=== PATIENT | male | born 1990 | race Caucasian/White ===

== ENCOUNTER 2018-02-10 19:53 | Emergency (ER) | payer BC ==
[~2018-02-10] VITALS: Ht 172.7 cm; Wt 60.0 kg
[2018-02-10 20:05] VITALS: BP 115/75
[2018-02-10 21:51] LABS: BASOPHILS # (AUTO) 0.02 x10^3/uL (0-0.1); BASOPHILS % (AUTO) 0 % (0-1); EOSINOPHILS % (AUTO) 1 % (1-7); LYMPHOCYTES % (AUTO) 20 % (22-44); MD NO; MEAN CORPUSCULAR HEMOGLOBIN 29.7 pg (27.5-34.5); MEAN CORPUSCULAR HGB CONC 33.2 g/dL (33.2-36.2); MEAN CORPUSCULAR VOLUME 89.5 fL (81-97); MEAN PLATELET VOLUME 7.6 fL (7.4-10.4); MONOCYTES # (AUTO) 0.44 x10^3/uL (0.2-0.8); MONOCYTES % (AUTO) 5 % (2-9); NEUTROPHILS # (AUTO) 6.04 x10^3/uL (1.8-6.8); NEUTROPHILS % (AUTO) 74 % (42-75); PLATELET COUNT 266 x10^3/uL (130-400); RED CELL DISTRIBUTION WIDTH 13.1 % (9.4-14.8)
[2018-02-10] MEDS ORDERED: SODIUM CHLORIDE FLUSH 10ML SYR IVF ONE (22:00)
[2018-02-10 22:03] LABS: ALANINE AMINOTRANSFERASE 20 U/L (12-78); ALBUMIN 4.2 g/dL (3.4-5.0); ANION GAP 7 mmol/L (5-15); CHLORIDE 110 mmol/L (98-107); CREATININE 0.79 mg/dL (0.7-1.3)
[2018-02-10 22:06] LABS: ALKALINE PHOSPHATASE 88 U/L (45-117); BILIRUBIN,TOTAL 0.5 mg/dL (0.2-1.0); TOTAL PROTEIN 7.9 g/dL (6.4-8.2)
[2018-02-10] MEDS ORDERED: OMNIPAQUE 350 MG/ML, 100ML BOTTLE ONE (22:29)
[2018-02-10 22:58] LABS: MICROSCOPIC NOT IND
[2018-02-10 23:01] LABS: CULTURE INDICATED? NO
== END 2018-02-11 00:12 | disposition home or self-care (01) ==
LOC: ED 23:34
DX: S73.111A Iliofemoral ligament sprain of right hip, initial encounter (principal); R10.31 Right lower quadrant pain; Z90.89 Acquired absence of other organs; X58.XXXA Exposure to other specified factors, initial encounter; Y93.89 Activity, other specified; Y92.89 Other specified places as the place of occurrence of the external cause; Y99.8 Other external cause status
CPT/HCPCS: 36415; 74177; 76857; 80053; 81003; 85025; 99285; Q9967

== ENCOUNTER 2018-02-14 14:12 | Emergency (ER) | payer BC ==
[~2018-02-14] VITALS: Ht 170.2 cm; Wt 58.1 kg
[2018-02-14 14:18] VITALS: BP 111/71
== END 2018-02-14 16:11 | disposition home or self-care (01) ==
LOC: ED 14:38
DX: M25.522 Pain in left elbow (principal); M25.512 Pain in left shoulder; Z90.89 Acquired absence of other organs
CPT/HCPCS: 99284

== ENCOUNTER 2018-03-18 17:03 | Emergency (ER) | payer BC ==
[~2018-03-18] VITALS: Ht 170.2 cm; Wt 53.0 kg
[2018-03-18 17:12] VITALS: BP 122/70
[2018-03-18] MEDS ORDERED: PROPARACAINE OPHTH 0.5%, 15ML EACHEYE ONE (17:30)
[2018-03-18] MEDS ORDERED: FLUORESCEIN OPHTHALMIC 1 MG STRIP EACHEYE ONE (17:30)
[2018-03-18] MEDS ORDERED: PROPARACAINE OPHTH 0.5%, 15ML ONE (17:53)
== END 2018-03-18 18:24 | disposition home or self-care (01) ==
LOC: ED 18:19
DX: H16.041 Marginal corneal ulcer, right eye (principal); H10.31 Unspecified acute conjunctivitis, right eye; F17.210 Nicotine dependence, cigarettes, uncomplicated
CPT/HCPCS: 99283

== ENCOUNTER 2018-06-12 00:58 | Emergency (ER) | payer BC ==
[~2018-06-12] VITALS: Ht 172.7 cm; Wt 59.0 kg
[2018-06-12 01:36] LABS: BASOPHILS # (AUTO) 0.05 x10^3/uL (0-0.1); BASOPHILS % (AUTO) 1 % (0-1); EOSINOPHILS # (AUTO) 0.18 x10^3/uL (0-0.4); EOSINOPHILS % (AUTO) 2 % (1-7); LYMPHOCYTES # (AUTO) 3.12 x10^3/uL (1-3.4); LYMPHOCYTES % (AUTO) 31 % (22-44); MD NO; MEAN CORPUSCULAR HEMOGLOBIN 30.2 pg (27.5-34.5); MEAN CORPUSCULAR HGB CONC 33.8 g/dL (33.2-36.2); MEAN CORPUSCULAR VOLUME 89.3 fL (81-97); MEAN PLATELET VOLUME 7.8 fL (7.4-10.4); MONOCYTES # (AUTO) 0.59 x10^3/uL (0.2-0.8); MONOCYTES % (AUTO) 6 % (2-9); NEUTROPHILS # (AUTO) 6.19 x10^3/uL (1.8-6.8); NEUTROPHILS % (AUTO) 61 % (42-75); PLATELET COUNT 309 x10^3/uL (130-400); RED BLOOD COUNT 5.47 x10^6/uL (4.38-5.82)
[2018-06-12] MEDS ORDERED: HYDROcodone/APAP 5/325 TABLET ONE (01:45)
[2018-06-12 01:48] LABS: ALANINE AMINOTRANSFERASE 27 U/L (12-78); ALBUMIN 4.4 g/dL (3.4-5.0); ANION GAP 9 mmol/L (5-15); CALCIUM 9.3 mg/dL (8.5-10.1); CHLORIDE 105 mmol/L (98-107); CREATININE 1.11 mg/dL (0.7-1.3)
[2018-06-12 01:50] LABS: MICROSCOPIC AUTO
[2018-06-12 01:51] LABS: CULTURE INDICATED? NO
[2018-06-12 01:51] LABS: ALKALINE PHOSPHATASE 89 U/L (45-117); BILIRUBIN,TOTAL 0.4 mg/dL (0.2-1.0); TOTAL PROTEIN 8.8 g/dL (6.4-8.2)
[2018-06-12] MEDS ORDERED: HYDROcodone/APAP 5/325 TABLET PO ONE (02:00)
[2018-06-12 02:15] VITALS: BP 105/62
== END 2018-06-12 02:17 | disposition home or self-care (01) ==
LOC: ED 01:19
DX: S39.011A Strain of muscle, fascia and tendon of abdomen, initial encounter (principal); Z90.89 Acquired absence of other organs; X58.XXXA Exposure to other specified factors, initial encounter; Y93.89 Activity, other specified; Y92.89 Other specified places as the place of occurrence of the external cause; Y99.8 Other external cause status
CPT/HCPCS: 36415; 80053; 81001; 83690; 85025; 99284

== ENCOUNTER 2018-09-03 16:13 | Emergency (ER) | payer BC ==
[~2018-09-03] VITALS: Ht 170.2 cm; Wt 62.9 kg
[2018-09-03 16:43] LABS: BASOPHILS # (AUTO) 0.03 x10^3/uL (0-0.1); BASOPHILS % (AUTO) 0 % (0-1); EOSINOPHILS # (AUTO) 0.08 x10^3/uL (0-0.4); EOSINOPHILS % (AUTO) 1 % (1-7); LYMPHOCYTES # (AUTO) 2.25 x10^3/uL (1-3.4); LYMPHOCYTES % (AUTO) 24 % (22-44); MD NO; MEAN CORPUSCULAR HEMOGLOBIN 29.6 pg (27.5-34.5); MEAN CORPUSCULAR HGB CONC 33.3 g/dL (33.2-36.2); MEAN CORPUSCULAR VOLUME 89.1 fL (81-97); MEAN PLATELET VOLUME 7.8 fL (7.4-10.4); MONOCYTES # (AUTO) 0.53 x10^3/uL (0.2-0.8); MONOCYTES % (AUTO) 6 % (2-9); NEUTROPHILS # (AUTO) 6.48 x10^3/uL (1.8-6.8); NEUTROPHILS % (AUTO) 69 % (42-75); PLATELET COUNT 307 x10^3/uL (130-400); RED BLOOD COUNT 5.59 x10^6/uL (4.38-5.82); RED CELL DISTRIBUTION WIDTH 13.4 % (9.4-14.8)
[2018-09-03 16:56] LABS: ALANINE AMINOTRANSFERASE 41 U/L (12-78); ALBUMIN 4.7 g/dL (3.4-5.0); ANION GAP 9 mmol/L (5-15); CALCIUM 9.1 mg/dL (8.5-10.1); CHLORIDE 106 mmol/L (98-107); CREATININE 0.94 mg/dL (0.7-1.3)
[2018-09-03 16:58] LABS: ALKALINE PHOSPHATASE 84 U/L (45-117); TOTAL PROTEIN 8.8 g/dL (6.4-8.2)
--- NOTE | 2018-09-03 17:19 | NUR ---
PT STATED THAT HE HAS RIGHT EAR PAIN, DIZZINESS, CP, AND ABD PAIN. ABD PAIN HAS BEEN SINCE LAST YEAR. PT IS ALERT, ORIENTED, WITH NAD. PT IS CONNECTED TO THE MONITOR. CALL LIGHT WITHIN REACH. MOM AT BEDSIDE.
--- NOTE | 2018-09-03 18:11 | NUR ---
PA AT BEDSIDE.
--- NOTE | 2018-09-03 18:55 | NUR ---
BS REPORT OF PT FROM AMAURY CAMPBELL, AND ASSUMING CARE OF PT.
--- NOTE | 2018-09-03 18:55 | NUR ---
REPORT GIVEN TO CARLOS REBOLLEDO.
--- NOTE | 2018-09-03 19:19 | NUR ---
pt d/c with d/c summary and scripts. all questions answered. pt denies any other needs pertaining to this visit.pt ambulates to registration desk for d/c home with family. vss and updated in emr prior to departure.
[2018-09-03 19:20] VITALS: BP 117/68
== END 2018-09-03 19:22 | disposition home or self-care (01) ==
LOC: ED 18:29
DX: H92.01 Otalgia, right ear (principal); R07.89 Other chest pain; Z90.89 Acquired absence of other organs
CPT/HCPCS: 36415; 80053; 83690; 85025; 93005; 99283; 99284

== ENCOUNTER 2020-06-10 14:19 | Emergency (ER) | payer SELFPAY ==
[~2020-06-10] VITALS: Ht 172.7 cm; Wt 54.5 kg
[2020-06-10 14:28] VITALS: BP 118/78
[2020-06-10] MEDS ORDERED: ONDANSETRON 2MG/ML, 2ML ONE (14:57)
[2020-06-10] MEDS ORDERED: ONDANSETRON 2MG/ML, 2ML IVPush ONE (15:00)
[2020-06-10] MEDS ORDERED: ONDANSETRON ODT 4 MG ONE (15:57)
[2020-06-10] MEDS ORDERED: ONDANSETRON ODT 4 MG PO ONE (16:00)
== END 2020-06-10 16:04 | disposition home or self-care (01) ==
LOC: ED 16:00
DX: M25.561 Pain in right knee (principal); Z90.89 Acquired absence of other organs
CPT/HCPCS: 29505; 73564; 99283; Q0162; J2405